=== PATIENT | male | born 1955 | race Caucasian/White ===

== ENCOUNTER → 2024-04-07 | Day surgery (SDC) | payer MEDICARE ==
[~2024-04-07] VITALS: Ht 167.6 cm; Wt 65.8 kg
[~2024-04-07] MED LIST: ACETAMINOPHEN 325MG TABLET PO PRN; ASPI-1497 PO; BEMP180T PO; CLON1TAB2 PO; EZET10TA81 PO; FENTANYL CITRATE/PF 50MCG/ML 2ML VIAL ONE; FLUO10CA25 PO; HEPARIN 1000 UNITS/ML 10ML ONE; IODIXANOL 320MG/ML 100 ML BOTTLE IV ONE; LIDOCAINE HCL 1% 20ML VIAL ONE; LISI20TA31 PO; METF-414 PO; MIDAZOLAM HCL 2 MG/2 ML VIAL ONE; MULT-1146 PO; ONDANSETRON HCL 4MG/2ML INJ IV PRN
[2024-04-07] MEDS: SODIUM CHLORIDE 0.45% 500 ML IV NR (07:58)
== END | disposition home or self-care (01) ==
LOC: CCL 06:16
PROVIDERS: ATTEND Specialist
DX: I25.118 Atherosclerotic heart disease of native coronary artery with other forms of angina pectoris (principal); R07.9 Chest pain, unspecified; R94.39 Abnormal result of other cardiovascular function study; I12.9 Hypertensive chronic kidney disease with stage 1 through stage 4 chronic kidney disease, or unspecified chronic kidney disease; N18.2 Chronic kidney disease, stage 2 (mild); E11.22 Type 2 diabetes mellitus with diabetic chronic kidney disease; E78.5 Hyperlipidemia, unspecified; I25.2 Old myocardial infarction; I25.82 Chronic total occlusion of coronary artery; I34.81 Nonrheumatic mitral (valve) annulus calcification; I87.2 Venous insufficiency (chronic) (peripheral); F51.04 Psychophysiologic insomnia; F41.9 Anxiety disorder, unspecified; F32.A Depression, unspecified; D17.0 Benign lipomatous neoplasm of skin and subcutaneous tissue of head, face and neck; K44.9 Diaphragmatic hernia without obstruction or gangrene; Z79.82 Long term (current) use of aspirin; Z79.84 Long term (current) use of oral hypoglycemic drugs; Z79.899 Other long term (current) drug therapy; Z82.49 Family history of ischemic heart disease and other diseases of the circulatory system; Z98.890 Other specified postprocedural states; Z88.1 Allergy status to other antibiotic agents; Z88.8 Allergy status to other drugs, medicaments and biological substances; Z88.5 Allergy status to narcotic agent
CPT/HCPCS: 93458; 82962; C1893; C1725; C1769 ×3; J3010; Q9967; J1644 ×2; J3490; J2250; C1887 ×2; 99152; 99153; A4606; G0500